=== PATIENT | female | born 1970 | race Caucasian/White ===

== ENCOUNTER 2021-01-15 02:31 | Emergency (ER) | payer OTHER ==
[2021-01-15 03:50] LABS: Basophils % 0.5 % (0-1.3); Hematocrit 36.9 % (36.0-45.0); Lymphocytes % 20.7 % (15.3-44.8); MPV 8.3 fL (7.6-11.3); RBC Red Blood Cell Count 4.06 M/uL (3.86-4.86)
[2021-01-15] MEDS ORDERED: NA CHLORIDE 0.9% 1,000 ML ONE (03:57)
[2021-01-15 04:01] LABS: Bilirubin Direct 0.2 mg/dL (0-0.2); Bilirubin Total 0.8 mg/dL (0.2-1.0); Potassium 3.7 mmol/L (3.5-5.1)
[2021-01-15 04:02] LABS: Albumin 3.5 g/dL (3.4-5.0); Magnesium 2.2 mg/dL (1.8-2.4); Protein, Total 7.6 g/dL (6.4-8.2)
[2021-01-15 04:17] LABS: Protime INR 1.11
[2021-01-15 04:22] LABS: Urine Blood 3+ (Negative); Urine Glucose Negative (Negative); Urine Protein Negative (Negative); Urine Specific Gravity <=1.005 (1.005-1.030); Urine pH 5.5 (5.0-7.0)
[2021-01-15 04:39] LABS: Barbiturates NEGATIVE (NEGATIVE); Benzodiazepines NEGATIVE (NEGATIVE); Cocaine NEGATIVE (NEGATIVE); METHAMPHETAM NEGATIVE (NEGATIVE); Methadone NEGATIVE (NEGATIVE); Opiates NEGATIVE (NEGATIVE); Phencyclidine NEGATIVE (NEGATIVE); THC Cannibis NEGATIVE (NEGATIVE)
--- NOTE | 2021-01-15 04:54 | EDPHYS ---
Physician Documentation [facility] Name: Ronna Goins Age: 50 yrs Sex: Female : 1970 Arrival Date: 01/15/2021 Time: 02:38 Bed 23 Private MD: ED Physician Zac Ramirez HPI: 01/15 02:45 This 50 yrs old Female presents to ER via Ambulatory with complaints of mh7 Fever, ORAL BLEEDING, COUGHING BLOOD. 02:45 The patient reports fever, Chills. mh7 02:45 Onset: The symptoms/episode began/occurred yesterday. mh7 02:45 Modifying factors: Recent medications: amoxicillin. Associated signs and symptoms: mh7 Pertinent positives: chills, cough, Left lower tooth pain for 2 weeks. Pertinent negatives: abdominal pain, altered mental status, arthralgias, backache, chest pain, diarrhea, pulling at ears, earache, headache, myalgias, nausea, night sweats, runny nose, sinus congestion, sinus drainage, skin rash, shortness of breath, sore throat, swelling, vomiting. Severity of symptoms: At their worst the symptoms were mild yesterday, in the emergency department the symptoms are unchanged. Patient states that she started having bleeding in her left lower tooth yesterday and has resolved was coughing up some blood in the sputum after swallowing it. She reports feeling chills over the past day. She denies any fever, headache, chest pain, abdominal pain, shortness of breath, nausea, vomiting, diarrhea, dysuria, dizziness, numbness/tingling, or focal weakness.. 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 - Social history:: Smoking status: Patient denies any tobacco usage or history of. ROS: 02:45 Eyes: Negative for injury, pain, redness, and discharge, Neck: Negative for injury, mh7 pain, and swelling, Cardiovascular: Negative for chest pain, palpitations, and edema, Abdomen/GI: Negative for abdominal pain, nausea, vomiting, diarrhea, and constipation, Back: Negative for injury and pain, : Negative for injury, bleeding, discharge, and swelling, MS/Extremity: Negative for injury and deformity, Skin: Negative for injury, rash, and discoloration, Neuro: Negative for headache, weakness, numbness, tingling, and seizure, Psych: Negative for depression, anxiety, suicide ideation, homicidal ideation, and hallucinations, Allergy/Immunology: Negative for hives, rash, and allergies, Endocrine: Negative for neck swelling, polydipsia, polyuria, polyphagia, and marked weight changes, Hematologic/Lymphatic: Negative for swollen nodes, abnormal bleeding, and unusual bruising. Exam: 02:45 Constitutional: This is a well developed, well nourished patient who is awake, alert, mh7 and in no acute distress. Head/Face: Normocephalic, atraumatic. Eyes: Pupils equal round and reactive to light, extra-ocular motions intact. Lids and lashes normal. Conjunctiva and sclera are non-icteric and not injected. Cornea within normal limits. Periorbital areas with no swelling, redness, or edema. 02:45 Neck: Trachea midline, no thyromegaly or masses palpated, and no cervical lymphadenopathy. Supple, full range of motion without nuchal rigidity, or vertebral point tenderness. No Meningismus. Chest/axilla: Normal chest wall appearance and motion. Nontender with no deformity. No lesions are appreciated. Cardiovascular: Regular rate and rhythm with a normal S1 and S2. No gallops, murmurs, or rubs. Normal PMI, no JVD. No pulse deficits. Respiratory: Lungs have equal breath sounds bilaterally, clear to auscultation and percussion. No rales, rhonchi or wheezes noted. No increased work of breathing, no retractions or nasal flaring. Abdomen/GI: Soft, non-tender, with normal bowel sounds. No distension or tympany. No guarding or rebound. No evidence of tenderness throughout. Back: No spinal tenderness. No costovertebral tenderness. Full range of motion. Skin: Warm, dry with normal turgor. Normal color with no rashes, no lesions, and no evidence of cellulitis. MS/ Extremity: Pulses equal, no cyanosis. Neurovascular intact. Full, normal range of motion. Neuro: Awake and alert, GCS 15, oriented to person, place, time, and situation. Cranial nerves II-XII grossly intact. Motor strength 5/5 in all extremities. Sensory grossly intact. Cerebellar exam normal. Normal gait. Psych: Awake, alert, with orientation to person, place and time. Behavior, mood, and affect are within normal limits. 02:45 ENT: Nose: is normal, Mouth: is normal, Posterior pharynx: is normal, Dental exam: abscess, is not appreciated, cellulitis, is not appreciated, dental caries, that is mild, specifically in the lower left second molar (#18), fractured teeth are noted, not appreciated, gum swelling, not appreciated, malocclusion, is not appreciated, missing teeth, not appreciated, pain, that is mild, specifically in the lower left second molar (#18), Voice: is normal. Vital Signs: 02:51 BP 145 / 85; Pulse 65; Resp 18; Temp 97.4(TE); Pulse Ox 98% on R/A; Weight 59.87 kg lp1 (R); Height 5 ft. 0 in. (152.40 cm); Pain 0/10; 04:22 BP 137 / 84; Pulse 62; Resp 14; Temp 97.9(O); Pulse Ox 99% on R/A; bc5 05:12 BP 129 / 75; Pulse 68; Resp 15; Temp 98.3(O); Pulse Ox 99% on R/A; Pain 0/10; bc5 02:51 Body Mass Index 25.78 (59.87 kg, 152.40 cm) lp1 MDM: 04:49 Differential diagnosis: viral Infection, bacterial infection, URI, bronchitis, mh7 pneumonia UTI, Dental pain, dental caries, gingivitis. Data reviewed: vital signs, nurses notes, lab test result(s), CBC, electrolytes, Flu: negative urinalysis, urine drug screen, Covid negative. Data interpreted: Pulse oximetry: on room air is 99 %. Interpretation: normal. Counseling: I had a detailed discussion with the patient and/or guardian regarding: the historical points, exam findings, and any diagnostic results supporting the discharge/admit diagnosis, the presence of at least one elevated blood pressure reading (>120/80) during this emergency department visit, lab results, radiology results, the need for outpatient follow up, a dentist, to return to the emergency department if symptoms worsen or persist or if there are any questions or concerns that arise at home. Response to treatment: the patient's symptoms have resolved after treatment, the patient's blood pressure is in an acceptable range, mental status has returned to baseline, the patient no longer shows bradycardia, the patient is not short of breath, the patient is not tachycardic, the patient's pain is gone, the patient's temperature has normalized. 04:53 Patient medically screened. [facility] 01/15 03:01 Order name: CBC with Diff; Complete Time: 04:20 [facility] 01/15 03:01 Order name: Basic Metabolic Panel; Complete Time: 04:20 [facility] 01/15 03:01 Order name: LFT's; Complete Time: 04:20 [facility] 01/15 03:01 Order name: Protime (+inr); Complete Time: 04:23 [facility] 01/15 03:01 Order name: Ptt, Activated; Complete Time: 04:23 [facility] 01/15 03:01 Order name: UDS; Complete Time: 04:44 7 01/15 03:08 Order name: Magnesium [facility] 01/15 03:46 Order name: Magnesium; Complete Time: 04:20 EDMS 01/15 04:21 Order name: Urine Dipstick-Ancillary; Complete Time: 04:23 EDMS 01/15 04:28 Order name: Urine --Ancillary (enter results) tt3 01/15 04:38 Order name: SARS-COV-2 RT PCR; Complete Time: 04:44 EDMS 01/15 03:01 Order name: Urine Dipstick-Ancillary (obtain specimen); Complete Time: 04:22 7 01/15 03:01 Order name: Urine Test (obtain specimen); Complete Time: 04:22 7 01/15 03:01 Order name: Chest Single View XRAY [facility] 01/15 03:01 Order name: Saline Lock; Complete Time: 03:33 mh7 Administered Medications: 03:33 Drug: NS 0.9% 1000 ml Route: IV; Rate: 1000 ml; Site: right antecubital; bc5 05:11 Follow up: IV Status: Completed infusion; IV Intake: 1000ml bc5 Disposition Summary: 01/15/21 04:53 Discharge Ordered Location: Home [facility] Problem: an ongoing problem [facility] Symptoms: have improved [facility] Condition: Stable [facility] Diagnosis - Dental caries, unspecified [facility] - Gingivitis [facility] Followup: [facility] - With: Private Physician - When: 1 - 2 days - Reason: Worsening of condition, Recheck today's complaints, Continuance of care, Re-evaluation by your physician Followup: [facility] - With: Hernán Avery DDS - When: 1 - 2 days - Reason: Worsening of condition, Recheck today's complaints Discharge Instructions: - Discharge Summary Sheet [facility] - Dental Caries, Adult [facility] - Dental Pain, Vetr-is-Oebt [facility] - Gingivitis, Cxfk-fv-Jrui [facility] Forms: - Medication Reconciliation Form [facility] - Thank You Letter [facility] - Antibiotic Education [facility] - Prescription Opioid Use [facility] - Work release form bc5 Prescriptions: - chlorhexidine gluconate 0.12 % Mucous Membrane mouthwash - place 15 milliliter by MUCOUS MEMBRANE route 2 times per day after brushing [facility] teeth, swish in mouth for 30 seconds then spit out; 150 milliliter; Refills: 0, Product Selection Permitted Signatures: Dispatcher [employer] EDMS Samia Barnes, RN RN lp1 Gabriele Castillo, VISCOSITY TESTER-C VISCOSITY TESTER-Cla1 Zac Ramirez MD MD 7 Camille Milligan, RN RN bc5 Corrections: (The following items were deleted from the chart) 03:37 03:02 CORONAVIRUS+MR.LAB.BRZ ordered. EDMS EDMS 03:45 03:09 Magnesium ordered. EDMS EDMS
--- NOTE | 2021-01-15 04:54 | ER ---
Nurse's Notes [facility] Name: Ronna Goins Age: 50 yrs Sex: Female : 1970 Arrival Date: 01/15/2021 Time: 02:38 Bed 23 Private MD: Diagnosis: Dental caries, unspecified;Gingivitis Presentation: 01/15 02:51 Chief complaint: Patient states: Reports tasting blood in mouth this morning, has been lp1 dealing with a tooth abscess x 2 weeks; states feeling cold, chills. Coronavirus screen: At this time, the client does not indicate any symptoms associated with coronavirus-19. Ebola Screen: No symptoms or risks identified at this time. Initial Sepsis Screen: Does the patient meet any 2 criteria? No. Patient's initial sepsis screen is negative. Does the patient have a suspected source of infection? No. Patient's initial sepsis screen is negative. Risk Assessment: Do you want to hurt yourself or someone else? Patient reports no desire to harm self or others. Onset of symptoms was January 15, 2021. 02:51 Method Of Arrival: Ambulatory lp1 02:51 Acuity: CECILIO 4 lp1 Triage Assessment: 03:34 General: Appears in no apparent distress. distressed, comfortable, Behavior is calm, bc5 cooperative, appropriate for age. Pain:. 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 - Social history:: Smoking status: Patient denies any tobacco usage or history of. Screenin:54 Abuse screen: Denies threats or abuse. Denies injuries from another. Nutritional lp1 screening: No deficits noted. Tuberculosis screening: No symptoms or risk factors identified. Fall Risk None identified. Assessment: 03:34 Reassessment: Pt c/o left tooth pain d/t "abcess" pt reports first noticing approx 3 bc5 weeks ago, states this weekend felt "chills and look up sepsis and got scared" A\\T\\O x 3, RR is even and unlabored, speaking in clear and complete sentences at this time. Vital Signs: 02:51 BP 145 / 85; Pulse 65; Resp 18; Temp 97.4(TE); Pulse Ox 98% on R/A; Weight 59.87 kg lp1 (R); Height 5 ft. 0 in. (152.40 cm); Pain 0/10; 04:22 BP 137 / 84; Pulse 62; Resp 14; Temp 97.9(O); Pulse Ox 99% on R/A; bc5 05:12 BP 129 / 75; Pulse 68; Resp 15; Temp 98.3(O); Pulse Ox 99% on R/A; Pain 0/10; bc5 02:51 Body Mass Index 25.78 (59.87 kg, 152.40 cm) lp1 ED Course: 02:38 Patient arrived in ED. ja2 02:43 Zac Ramirez MD is Attending Physician. 7 02:45 Camille Milligan, STARR is Primary Nurse. bc5 02:53 Triage completed. lp1 02:53 Arm band placed on. lp1 03:13 Chest Single View XRAY In Process Unspecified. EDMS 03:34 Patient has correct armband on for positive identification. Bed in low position. Call bc5 light in reach. Side rails up X 1. 03:34 No provider procedures requiring assistance completed. Inserted saline lock: 20 gauge bc5 in right antecubital area, using aseptic technique. 04:51 Hernán Avery DDS is Referral Physician. 7 05:12 IV discontinued, intact, bleeding controlled, No redness/swelling at site. Pressure bc5 dressing applied. Administered Medications: 03:33 Drug: NS 0.9% 1000 ml Route: IV; Rate: 1000 ml; Site: right antecubital; bc5 05:11 Follow up: IV Status: Completed infusion; IV Intake: 1000ml bc5 Intake: 05:11 IV: 1000ml; Total: 1000ml. bc5 Outcome: 04:53 Discharge ordered by . 7 05:12 Condition: stable bc5 05:24 Patient left the ED. bc5 05:24 Discharged to home ambulatory. bc5 05:24 Discharge instructions given to patient, Instructed on discharge instructions, follow up and referral plans. medication usage, Prescriptions given X 1. Signatures: Dispatcher [employer] Samia Michelle, RN RN lp1 Zac Ramirez MD MD mh7 Evie Hernandez Bella, RN RN bc5
[2021-01-15 05:29] LABS: Urine Specific Gravity/Preg <1.005 (1.005-1.030)
[2021-01-15 05:35] VITALS: O2SAT 99
[2021-01-15 05:36] VITALS: BP 129/75; TEMP 98.3
--- NOTE | 2021-01-15 07:39 | RAD REPORT ---
EXAM DESCRIPTION: Juan Luis Single View01/15/2021 3:13 am CLINICAL HISTORY: Cough COMPARISON: 2017 FINDINGS: The lungs appear clear of acute infiltrate. The heart is normal size IMPRESSION: No acute abnormalities displayed
== END 2021-01-15 05:24 | disposition home or self-care (01) ==
LOC: ER 02:31
DX: K05.10 Chronic gingivitis, plaque induced (principal); E03.9 Hypothyroidism, unspecified; Z20.822 Contact with and (suspected) exposure to COVID-19
CPT/HCPCS: 96361; 85025; 80048; 36415; 83735; 81025; 85610; 80076; 85730; 81003; 80307; 71045; 96360; 99284; U0003; J7030

== ENCOUNTER 2021-03-05 07:33 | Day surgery (SDC) | payer OTHER ==
[2021-03-05 08:18] LABS: Absolute Lymphocytes (CBC) 1.3 K/uL (0.7-4.9); Basophils % 0.6 % (0-1.3); Hematocrit 39.8 % (36.0-45.0); Lymphocytes % 31.1 % (15.3-44.8); MPV 7.9 fL (7.6-11.3)
[2021-03-05 08:37] LABS: Albumin 3.5 g/dL (3.4-5.0); Bilirubin Direct 0.2 mg/dL (0-0.2); Bilirubin Total 0.7 mg/dL (0.2-1.0); Potassium 4.1 mmol/L (3.5-5.1); Protein, Total 7.8 g/dL (6.4-8.2)
[2021-03-05] MEDS ORDERED: Ringers Lactate 1,000 ML IV ONE (08:44)
[2021-03-05] MEDS ORDERED: CEFOXITIN/NS 1gm 1 GM/50 ML BAG IV ONE (09:00)
[2021-03-05 09:09] VITALS: O2SAT 100
[2021-03-05] MEDS ORDERED: CELECOXIB 100 MG CAPSULE ONE (10:12)
[2021-03-05] MEDS ORDERED: ACETAMINOPHEN 500 MG TAB ONE (10:13)
[2021-03-05] MEDS ORDERED: MIDAZOLAM HCL 2 MG/2 ML INJ ONE (10:19)
[2021-03-05] MEDS ORDERED: LIDOCAINE 2% MPF 5 ML VIAL ONE (10:19)
[2021-03-05] MEDS ORDERED: GLYCOPYRROLATE 0.2 MG/ML SYR ONE (10:19)
[2021-03-05] MEDS ORDERED: FENTANYL CITR 100 MCG/2 ML ONE ×2 (10:20→11:44)
[2021-03-05] MEDS ORDERED: ROCURONIUM 50 MG/5 ML VIAL IV ONE (10:20)
[2021-03-05] MEDS ORDERED: propofoL 200 MG/20 ML VIAL IV ONE (10:20)
[2021-03-05] MEDS ORDERED: BUPIVACAINE 0.5% Inj,MDV 50 mL VIAL ONE (10:23)
--- NOTE | 2021-03-05 11:08 | P.BOP ---
Preoperative diagnosis: acute cholecystitis, symptomatic cholelithiasis Postoperative diagnosis: same Primary procedure: Laparoscopic cholecystectomy Steam Hoist Operator: Susan Urbina (Gabriela) Estimated blood loss: <10cc Specimen: gb Findings: as above Anesthesia: General Complications: None Transferred to: Recovery Room Condition: Good
[2021-03-05] MEDS ORDERED: ONDANSETRON 4 MG/2 ML VIAL ONE ×2 (11:43→13:46)
[2021-03-05] MEDS ORDERED: TRAMADOL 37.5mg/APAP 325mg PER TAB ONE (12:39)
--- NOTE | 2021-03-05 13:12 | OP ---
Date of Procedure: 03/05/2021 Surgeon: Jose Juan Mak MD Supervisor Finishing Room: DAVID Bryson. Preoperative Diagnoses: Acute cholecystitis, symptomatic cholelithiasis. Postoperative Diagnoses: Acute cholecystitis, symptomatic cholelithiasis. Procedure: Laparoscopic cholecystectomy. Estimated Blood Loss: Less than 10 cc. Specimen: Gallbladder. Anesthesia: General plus local. Indication: This is the case of a 50-year-old patient, who comes to us with above diagnosis. Fully explained the benefits, alternatives, and risks of laparoscopic possible open cholecystectomy, which include, but not limited to infection, bleeding, damage to adjacent structures, anesthesia complicati on, choledocholithiasis, bile leak, pancreatitis, WI, and even . She also understands this may not relieve any symptoms. She might need more than one surgical intervention. She understood, viraj d a consent. Procedure In Detail: The patient was brought to the operating room, placed in supine position. Anes thesia was done without complication. Abdominal area was prepped and draped in usual sterile fashion . Marcaine 0.5% was injected for local anesthetic followed by sharp incision of the skin in the infr aumbilical region. Incision was carried down to fascia, which was opened under direct vision. Perit oneum was encountered, opened under direct vision. Vicryl #1 placed inside the fascia. Abilio troca r was carefully introduced. Pneumoperitoneum was obtained. I placed 3 more trocars, 5 mm each one o f them in the epigastric and right upper quadrant under direct visualization. This allowed me to put a grasper in the fundus of the gallbladder, another grasper in the infundibulum retracting the gallb ladder in the inferolateral fashion, exposing the triangle of Calot and obtaining critical view. Cys tic duct and cystic artery were clearly isolated, free circumferentially and a connection between tho se and the gallbladder were clearly identified. I proceeded to ligate those by using at least 3 clip s proximal, 1 clip distal, ligation in middle. Same was done with the cystic artery. No bile leak. No bleeding. The gallbladder was removed from liver using Bovie cauterizer and removed from abdomin al cavity using EndoCatch through the umbilical incision. The area was inspected once again. No michael e leak. No bleeding. Clips were intact. At that moment, I proceeded to remove the trocars under di rect vision. Deflated pneumoperitoneum. Closed the fascia with #1 Vicryl. Irrigated subcutaneous t issue, closed that with 3-0 chromic and skin in a subcuticular fashion with 3-0 chromic, and Steri-St rips on top. Sponge count and instrument counts correct. The patient tolerated the procedure well. The patient was on the way to recovery in stable condition. ALICIA/CHEMO Voice ID: [id number] Report ID: [id number]
--- NOTE | 2021-03-05 13:15 | DS ---
Diagnoses: Acute cholecystitis, symptomatic cholelithiasis. Procedure: Laparoscopic cholecystectomy. Disposition: Home. Activity: As tolerated. No heavy lifting. Plan: Follow up in my office in 1 week. Call for appointment at [phone]. Keep area dry for [address] rs, then may shower. Keep Steri-Strip intact. Medications: Include Ultracet q.4 hours p.r.n. pain and Augmentin 875 p.o. q.12. ALICIA/CHEMO Voice ID: [id number] Report ID: [id number]
[2021-03-05 14:03] VITALS: BP 115/63; TEMP 97.3
--- NOTE | 2021-03-07 08:09 | EKG ---
Test Date: 2021-03-05 Test Time: 07:58:53 Fios Line Installer: SRINIVAS MEASUREMENT RESULTS: Intervals: Rate: 58 [place]: 152 QRSD: 72 QT: 396 QTc: 388 [place]: P: 74 [place]: 152 QRS: 66 T: 49 INTERPRETIVE STATEMENTS: Sinus bradycardia Otherwise normal ECG Compared to ECG 11/18/2017 15:14:36 No significant changes Electronically Signed On 03-07-21 08:03:56 DENTAL TECHNOLOGIST by Juancho Telles
== END 2021-03-05 14:45 | disposition home or self-care (01) ==
LOC: OR 07:33
PROVIDERS: ATTEND Surgery
PROC: 0FT44ZZ Resection of Gallbladder, Percutaneous Endoscopic Approach (ICD-10-PCS; principal; 2021-03-05 10:30)
DX: K80.10 Calculus of gallbladder with chronic cholecystitis without obstruction (principal)
CPT/HCPCS: 93005; 85025; 80048; 36415; 82150; 84703; 80076; 88304; 83690; 47562; U0003; J2704; J2250; J3010; J7120; J0694; J2405 ×2

== ENCOUNTER 2021-03-18 18:15 | Emergency (ER) | payer OTHER ==
--- OUTSIDE RECORDS SUMMARY | 2021-03-18 18:18 | XMS REPORT | Continuity of Care Document ---
:1970 Author Organization [facility] t Address 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 1-07 [place] PMS PMS Disease Active Univers (premenstr (premenstr 1-07 it y of ual ual 00:00: [place] syndrome) syndrome) 00 [place] anthony Branch Congenital Congenital Disease Active U nivers sensorineu sensorineu 6-19 it y of ral ral 00:00: [place] hearing hearing 00 Medical loss loss Branch Family Family Disease Active Univers history of history of 5-30 it y of breast breast 00:00: [place] cancer cancer 00 Medical Branch Weight Weight Disease Active Univers gain gain 5-30 ity of 00:00: [place] 00 Medical Branch Diverticul Diverticul Disease Active U nivers osis of osis of 4-21 [place] of intestine intestine 00:00[place] without without 00 Medical bleeding, bleeding, Bran ch unspecifie unspecifie d d intestinal intestinal tract tract location location History of History of Disease Active U nivers hematuria hematuria 4-21 ity of 00:00: [place] [facility] Pain Pain Disease Active Univers pelvic pelvic 4-21 ity of 00:00: [place] [facility] Unusually Unusually Disease Active Uni vers frequent frequent 4-21 ity of menses menses 00:00: [place] [facility] Menorrhagi Menorrhagi Disease Active U nivers a with a with 4-21 ity of regular regular 00:00: [place] cycle cycle 00 Medical Branch Family Family Disease Active Univers history of history of 4-21 it y of breast breast 00:00: [place] cancer in cancer in 00 [facility] first first Branch degree degree relative relative Vitamin D Vitamin D Disease Active Uni vers deficiency deficiency 6-10 it y of 00:00: [place] [facility] Papillary Papillary Disease Active Uni vers thyroid thyroid 3-10 it[place] of carcinoma carcinoma 00:[place] Hypothyroi Hypothyroi Disease Active U nivers dism, dism, 3-10 ity of postsurgic postsurgic 00:[place] Numbness Numbness Disease Active Unive rs and and 3-10 ity of tingling tingling 00:00: [place] in hands in hands 00 Medica l Branch S/P S/P Disease Active Univers thyroidect thyroidect 2-17 it y of eduardo eduardo 00:00: [place] [facility] Right Right Disease Active Univers thyroid thyroid 9-09 ity of nodule nodule 00:00: [place] [facility] Goiter Goiter Disease Active Univers 8-26 ity of 00:00: [place] 00 Medical Branch Genital Genital Disease Active Univers herpes herpes ity of [place] [facility] Branch Allergies, Adverse Reactions, Alerts Allergy Allergy Status Severity Reaction(s) Onset Inactive Treating Comm ents Source Name Type Date Date Clinician Nitrofur Propensi Active Swelling Face felt U nivers antoin ty to 4-30 very hot, ity of Monohyd/ adverse 00:00[place] M-Cryst reaction 00 and red. Medic al s Branch NITROFUR DRUG Active Rash Univers ANTOIN 4-30 ity of MONOHYD/ 00:00: [place] M-CRYST 00 Medical Branch AMOXICIL DRUG Active Med Diarrhea Univer s ISMAEL INGREDI 2-17 ity of 00:00: [place] 00 Medical Branch Amoxicil Propensi Active Diarrhea Univ ers ismael ty to 2-17 ity of adverse 00:00: [place] reaction 00 Medical s Branch Hydrocod Propensi Active Unknown - Paranoid U nivers one-Acet ty to See comments 8-15 it y of aminophe adverse 00:00: [place] n reaction 00 Medical s Branch Sertrali Propensi Active Rash Univer s ne Hcl ty to 8-15 ity of adverse 00:00: [place] reaction 00 Medical s Branch AMITRIPT DRUG Active Unknown-Cmnt Un quinn YLINE INGREDI 8-15 ity of 00:00: [place] 00 Medical Branch BUSPIRON DRUG Active Unknown-Cmnt Un quinn E HCL INGREDI 8-15 ity of 00:00: [place] 00 Medical Branch HYDROCOD DRUG Active Unknown-Cmnt Un quinn ONE-ACET 8-15 ity of AMINOPHE 00:00: [place] N 00 Medical Branch SERTRALI DRUG Active Rash Univers NE HCL INGREDI 8-15 ity of 00:00: [place] 00 Medical Branch Amitript Propensi Active Unknown - Off Uni vers yline ty to See comments 8-15 balance ity of adverse 00:00: [place] reaction 00 Medical s Branch Buspiron Propensi Active Unknown - " Hearing Univers e Hcl ty to See comments 8-15 Noises" ity of adverse 00:00: [place] reaction 00 Medical s Branch amitript Adverse Active dizziness [facility] Zoloft Adverse Active rash [facility] BuSpar Adverse Active paranoia [facility] Amoxicil Adverse Active Info Not [facility] Vicodin Adverse Active paranoia [facility] Reaction [facility] Social History Social Habit Start Date Stop Date Quantity Comments Source History of Cigarette Smoker Universi ty of tobacco use [facility] Exposure to Not sure University of SARS-CoV-2 [place] [facility] (event) [place] Alcohol intake 2021-02-09 2021-02-09 0 /d University 00:00:00 00:00:00 [facility] Sex [birth year] At [birth year] Universit y of 00:00:00 00:00:00 [facility] Smoking Status Start Date Stop Date Source Former smoker 2020-12-12 00:00:00 2020-12-12 00:00:00 Universi of [facility] Medications Ordered Filled Start Stop Current Ordering Indication Dosage Frequency Signature Comments Components Source Medication Medication Date Date Medication? Clinician (SIG) Name Name levothyroxi 2020-04 Yes [id number] TAKE 1 Univers ne 75 mcg 2-03 TABLET BY ity o f tablet 00:00: MOUTH [place] EVERY Medical MORNING Branch levothyroxi 2020-04- No [id number] TAKE 1 Univers ne 75 mcg 1 12-03 TABLET BY ity of tablet 00:00: 00:00 MOUTH [place] 00 : EVERY Medical MORNING Branch cholecalcif 2020-04 Yes Take by Un quinn jerrica, 0-29 mouth. ity of vitamin D3, 10:01: [place] (VITAMIN Medical D3) 4,000 Branch unit Cap cholecalcif 2020-04 Yes Take by Un quinn jerrica, 0-29 mouth. ity of vitamin D3, 10:01: [place] (VITAMIN 00 Medical D3) 4,000 Branch unit Cap cholecalcif 2020-04 Yes Take by Un quinn jerrica, 0-29 mouth. ity of vitamin D3, 10:01: [place] (VITAMIN 00 Medical D3) 4,000 Branch unit Cap LORazepam Yes Univers 0.5 mg 7-09 ity of tablet 00:00: Medical [place] LORazepam Yes Univers 0.5 mg 7-09 ity of tablet 00:00: [facility] LORazepam Yes Univers 0.5 mg 7-09 ity of tablet 00:00: [facility] esomeprazol Yes [id number] 40mg Take 1 Univers e (NEXIUM) 7-06 capsule by ity of 40 mg 00:00: mouth [place] capsule 00 daily with Medica l breakfast. Branch esomeprazol Yes [id number] 40mg Take 1 Univers e (NEXIUM) 7-06 capsule by ity of 40 mg 00:00: mouth [place] capsule 00 daily with Medica l breakfast. Branch esomeprazol Yes [id number] 40mg Take 1 Univers e (NEXIUM) 7-06 capsule by ity of 40 mg 00:00: mouth [place] capsule 00 daily with Medica l breakfast. Branch sucralfate Yes TAKE 1 Unive rs 1 gram 7-01 TABLET BY ity of tablet 00:00: MOUTH [place] 00 EVERY 6 Medical HOURS Branch NEEDED FOR INDIGESTIO N, UPSET STOMACH OR HEARTBURN sucralfate Yes TAKE 1 Unive rs 1 gram 7-01 TABLET BY ity of tablet 00:00: MOUTH [place] 00 EVERY 6 Medical HOURS Branch NEEDED FOR INDIGESTIO N, UPSET STOMACH OR HEARTBURN sucralfate Yes TAKE 1 Unive rs 1 gram 7-01 TABLET BY ity of tablet 00:00: MOUTH [place] 00 EVERY 6 Medical HOURS Branch NEEDED FOR INDIGESTIO N, UPSET STOMACH OR HEARTBURN levothyroxi 2020- No [id number] TAKE 1 Univers ne 75 mcg 6-03 -06 TABLET BY ity of tablet 00:00: 00:00 MOUTH [place] 00 :00 EVERY Medical MORNING Branch levothyroxi 2020- No [id number] TAKE 1 Univers ne 75 mcg 6-03 11-06 TABLET BY ity of tablet 00:00: 00:00 MOUTH [place] 00 :00 EVERY Medical MORNING Branch Ciprofloxac Ciprofloxac 2020- No Nori [address] [facility] in HCl in HCl 12-14 [facility] valACYclovi Yes [id number] 1g Take 1 Univers r (VALTREX) 7-16 tablet by ity of 1 gram 00:00: mouth [place] tablet 00 daily. Medical Branch valACYclovi Yes [id number] 1g Take 1 Univers r (VALTREX) 7-16 tablet by ity of 1 gram 00:00: mouth [place] tablet 00 daily. [facility] Branch valACYclovi Yes [id number] 1g Take 1 Univers r (VALTREX) 7-16 tablet by ity of 1 gram 00:00: mouth [place] tablet 00 daily. Medical Branch Omeprazole Omeprazole Yes Nori [address] [facility] 8-07 [facility] Mobic Mobic Yes Nori [address] [facility] Emverm Emverm Yes Nori [address] [facility] one time [facility] Azithromyci Azithromyci Yes Nori [address] [facility] n n [facility] on the [facility] first day, [facility] then 1 l tablet Outpati daily for ent 4 days Clinics Levothyroxi Levothyroxi Yes Nori not [facility] ne Sodium ne Sodium [facility] defined [facility] Vital Signs Vital Name Observation Time Observation Value Comments Source Systolic blood 2021-02-09 14:41:00 127 mm[Hg] [facility] Diastolic blood 2021-02-09 14:41:00 71 mm[Hg] [facility] Body height 2021-02-09 14:41:00 154.9 cm [facility] Body weight 2021-02-09 14:41:00 54.885 kg [facility] BMI 2021-02-09 14:41:00 22.86 kg/m2 [facility] Oxygen saturation 2021-02-09 14:41:00 96 /min [facility] in Arterial blood [facility] Br anch by Pulse oximetry Procedures This patient has no known procedures. Encounters Start End Encounter Admission Attending Care Care Encounter Source Date/Time Date/Time Type Type Clinicians Facility Department ID 2021-03-16 2021-03-16 SARA Eckert [id number] Univers 00:00:00 00:00:00 Sarah LOCKHART [id number] jarrod Dash [id number] [place] PROF[place] [id number] Ia dical NAL 220 Branch BUILDING 2021-02-09 2021-02-09 Office [facility] [id number] Univers 09:32:33 10:22:21 Visit [facility] [id number] it y of [place] [id number] Jacques as DOMINGO?BLEA [id number] Ia dical [address] MEDICAL OFFICE BUILDING 2021-02-09 2021-02-09 Outpatient [facility] [id number] Univers 09:30:00 10:22:21 [facility] 2020-09-18 2020-09-18 Outpatient Koudela_A [facility] MMG [id number] [place] 11:16:00 11:16:00 [facility] 2019-12-27 2019-12-27 Outpatient [facility] [id number] [facility]00 [facility] 2019-12-15 2019-12-15 [facility] [id number] [facility] 15:20:00 15:20:00 [facility] Medicine Medicine Outpati ent Clinics 2019-02-18 2019-02-18 [facility] [id number] [facility] 16:00:00 16:00:00 [facility] Medicine l Medicine Outpati ent Clinics 2018-08-13 2018-08-13 [facility] [id number] [facility] 08:45:00 08:45:00 [facility] Medicine l Medicine Outpati ent Clinics 2017-12-08 2017-12-08 [facility] [id number] [facility] 16:21:00 16:21:00 [facility] Medicine l Medicine Outpati ent Clinics 2017-12-05 2017-12-05 [facility] [id number] [facility] [address] 09:00:00 09:00:00 [facility] Medicine Medicine Outpati ent Clinics 2017-11-21 2017-11-21 [facility] [id number] [address] 08:28:00 08:28:00 t [facility] Medicine Outpati ent Clinics 2017-11-18 2017-11-18 [facility] [id number] [facility] [address] 22:37:00 22:37:00 t [facility] Medicine Outpati ent Clinics 2017-11-18 2017-11-18 [facility] [id number] [facility] 13:00:00 13:00:00 t [facility] Medicine Outpati ent Clinics 2017-09-09 2017-09-09 [facility] [id number] 13:15:00 13:15:00 t [facility] Medicine Outpati ent Clinics 2017-09-04 2017-09-04 [facility] [id number] 09:30:00 09:30:00 [facility] Medicine Outpati ent Clinics Results This patient has no known results.
[2021-03-18 19:14] LABS: Absolute Lymphocytes (CBC) 0.9 K/uL (0.7-4.9); Basophils % 0.9 % (0-1.3); Hematocrit 39.7 % (36.0-45.0); Lymphocytes % 8.7 % (15.3-44.8); MPV 7.9 fL (7.6-11.3); RBC Red Blood Cell Count 4.32 M/uL (3.86-4.86)
[2021-03-18 19:19] LABS: Protime INR 1.08
[2021-03-18 19:41] LABS: ALT/SGPT 123 U/L (12-78); AST/SGOT 174 U/L (15-37); Albumin 3.3 g/dL (3.4-5.0); Alkaline Phosphatase 98 U/L (45-117); BUN Blood Urea Nitrogen 18 mg/dL (7-18); Bicarbonate 30 mmol/L (21-32); Bilirubin Direct 0.3 mg/dL (0-0.2); Bilirubin Total 0.6 mg/dL (0.2-1.0); Glucose Level 118 mg/dL (74-106); Lipase 143 U/L (73-393); Magnesium 2.2 mg/dL (1.8-2.4); NT PRO-BNP 125 pg/mL (<125); Potassium 3.9 mmol/L (3.5-5.1); Protein, Total 7.5 g/dL (6.4-8.2); Sodium Level 142 mmol/L (136-145); Troponin (Emerg Dept Use Only) < 0.02 ng/mL (0.0-0.045)
--- NOTE | 2021-03-18 20:38 | RAD REPORT ---
EXAM DESCRIPTION: RAD - Chest Single View - 03/18/2021 7:46 pm CLINICAL HISTORY: PAIN COMPARISON: January 15 TECHNIQUE: AP portable chest image was obtained 03/18/2021 7:46 pm . FINDINGS: Lungs are clear. Heart and vasculature are normal. No measurable pleural effusion and no p neumothorax. No acute bony abnormality seen. No acute aortic findings suspected. IMPRESSION: No acute cardiopulmonary process. No significant change from comparison study.
[2021-03-18] MEDS ORDERED: FAMOTIDINE 20 MG/2 ML VIAL IV ONE (20:57)
[2021-03-18] MEDS ORDERED: ONDANSETRON 4 MG/2 ML VIAL ONE (20:57)
[2021-03-18] MEDS ORDERED: NA CHLORIDE 0.9% 1,000 ML ONE (20:57)
--- NOTE | 2021-03-18 21:20 | RAD REPORT ---
EXAM DESCRIPTION: CT - Abdomen Pelvis W Contrast - 03/18/2021 9:06 pm CLINICAL HISTORY: s/p cholecystectomy;Abd pain COMPARISON: Abdomen Pelvis W Contrast dated 10/24/2020; Chest For Pe Angio dated 03/18/2021 TECHNIQUE: Biphasic, helical CT imaging of the abdomen and pelvis was performed following 100 ml non -ionic IV contrast. No oral contrast administered. All CT scans are performed using dose optimization technique as appropriate and may include automated exposure control or mA/KV adjustment according to patient size. FINDINGS: No suspicious findings in the lung bases. The liver, spleen, and pancreas show no suspicious findings. Cholecystectomy clips are present no michael iary tree dilatation. No abscess, hemorrhage or other abnormality in or around the gallbladder fossa. Symmetric renal function is seen with no hydronephrosis or suspicious renal mass. Nonobstructing righ t renal calculi again noted. No pyelonephritis or acute parenchymal process. No bladder abnormalities . No adrenal abnormalities. Uterus and ovaries show no suspicious findings. No dilated bowel loops or bowel wall thickening. Appendix is normal. No free air, free fluid or infla mmatory stranding. No hernia, mass or bulky lymphadenopathy. No suspicious bony findings. IMPRESSION: Contrast enhanced CT abdomen and pelvis showing no acute or emergent finding.
--- NOTE | 2021-03-18 21:27 | RAD REPORT ---
EXAM DESCRIPTION: CT - Chest For Pe Angio - 03/18/2021 9:02 pm CLINICAL HISTORY: CHEST PAIN COMPARISON: Chest Single View dated 03/18/2021 TECHNIQUE: Dynamically enhanced 3 mm thick images of the chest were obtained during administration o f approximately 150mL Isovue 370 IV contrast. Coronal and oblique MIP reconstruction images were gene rated and reviewed. Exam utilizes a protocol to evaluate the pulmonary arterial tree. All CT scans are performed using dose optimization technique as appropriate and may include automated exposure control or mA/KV adjustment according to patient size. FINDINGS: No pulmonary emboli are identified. The aorta as imaged shows no acute or suspicious finding. No pericardial thickening or effusion. No infiltrate or mass in the lung parenchyma. No pleural effusion or pleural thickening. No mediastinal or hilar suspicious masses. No chest wall masses or abnormal axillary lymphadenopathy. IMPRESSION: No pulmonary emboli identified. No other significant or suspicious findings.
[2021-03-18 21:33] LABS: Urine Blood Negative (Negative); Urine Glucose Negative (Negative); Urine Protein Negative (Negative)
--- NOTE | 2021-03-18 22:42 | EDPHYS ---
Physician Documentation [facility] Name: Ronna Goins Age: 50 yrs Sex: Female : 1970 Arrival Date: 03/18/2021 Time: 18:17 Bed 6 Private MD: TOSIN Physician Zac Ramirez HPI: 03/18 20:56 This 50 yrs old Unknown Female presents to ER via EMS with complaints of Abdominal Pain.mh7 20:56 The patient presents with abdominal pain in the upper abdomen. Onset: The mh7 symptoms/episode began/occurred today. The symptoms radiate to back. Associated signs and symptoms: Pertinent positives: nausea and vomiting, chest pain, X2, Pertinent negatives: anorexia, blood in stools, constipation, diarrhea, dysuria, fever, headache, hematuria, palpitations, shortness of breath, vaginal discharge, vomiting blood. The symptoms are described as intermittent, vague, waxing/waning. Modifying factors: The symptoms are alleviated by nothing, the symptoms are aggravated by nothing. Severity of pain: At its worst the pain was moderate today, in the emergency department the pain has improved markedly. Had a cholecystectomy 03/05/2021 here.. Patient reports having cholecystectomy done here 03/05/[address] Mak. She states today she started having upper abdominal pain radiating to her back and lower chest area along with nausea and vomiting x2 episodes. Currently denies any fever, nausea, vomiting, chest pain, shortness of breath, diarrhea, dizziness, numbness/tingling, weakness, dysuria. Still has some intermittent discomfort in the epigastric area.. Historical: - Allergies: 18:40 Zoloft; vg1 - Home Meds: 18:40 levothyroxine oral [Active]; Multiple Vitamins oral [Active]; vg1 - PMHx: 18:40 Hypothyroidism; vg1 - PSHx: 18:40 thyroid sx; tubal ligation; Cholecystectomy; vg1 - Immunization history:: Client reports having NOT received the Covid vaccine. - Social history:: Smoking status: Patient/guardian denies using tobacco, the patient reports quitting approximately 6 years ago. ROS: 20:56 Constitutional: Negative for fever, chills, and weight loss, Eyes: Negative for injury, mh7 pain, redness, and discharge, ENT: Negative for injury, pain, and discharge, Neck: Negative for injury, pain, and swelling, Respiratory: Negative for shortness of breath, cough, wheezing, and pleuritic chest pain, Back: Negative for injury and pain, : Negative for injury, bleeding, discharge, and swelling, MS/Extremity: Negative for injury and deformity, Skin: Negative for injury, rash, and discoloration, Neuro: Negative for headache, weakness, numbness, tingling, and seizure, Psych: Negative for depression, anxiety, suicide ideation, homicidal ideation, and hallucinations, Allergy/Immunology: Negative for hives, rash, and allergies, Endocrine: Negative for neck swelling, polydipsia, polyuria, polyphagia, and marked weight changes, Hematologic/Lymphatic: Negative for swollen nodes, abnormal bleeding, and unusual bruising. Exam: 20:56 Constitutional: This is a well developed, well nourished patient who is awake, alert, mh7 and in no acute distress. Head/Face: Normocephalic, atraumatic. Eyes: Pupils equal round and reactive to light, extra-ocular motions intact. Lids and lashes normal. Conjunctiva and sclera are non-icteric and not injected. Cornea within normal limits. Periorbital areas with no swelling, redness, or edema. Neck: Trachea midline, no thyromegaly or masses palpated, and no cervical lymphadenopathy. Supple, full range of motion without nuchal rigidity, or vertebral point tenderness. No Meningismus. Chest/axilla: Normal chest wall appearance and motion. Nontender with no deformity. No lesions are appreciated. Cardiovascular: Regular rate and rhythm with a normal S1 and S2. No gallops, murmurs, or rubs. Normal PMI, no JVD. No pulse deficits. Respiratory: Lungs have equal breath sounds bilaterally, clear to auscultation and percussion. No rales, rhonchi or wheezes noted. No increased work of breathing, no retractions or nasal flaring. 20:56 Back: No spinal tenderness. No costovertebral tenderness. Full range of motion. Skin: Warm, dry with normal turgor. Normal color with no rashes, no lesions, and no evidence of cellulitis. MS/ Extremity: Pulses equal, no cyanosis. Neurovascular intact. Full, normal range of motion. Neuro: Awake and alert, GCS 15, oriented to person, place, time, and situation. Cranial nerves II-XII grossly intact. Motor strength 5/5 in all extremities. Sensory grossly intact. Cerebellar exam normal. Normal gait. Psych: Awake, alert, with orientation to person, place and time. Behavior, mood, and affect are within normal limits. 20:56 Abdomen/GI: Inspection: scar(s), are noted in the right upper quadrant, Small surgical wounds appear clean, dry, and intact without erythema, tenderness, swelling, or discharge., Bowel sounds: normal, in all quadrants, Palpation: mild abdominal tenderness, in the epigastric area, mass, is not appreciated, rebound tenderness, is not appreciated, voluntary guarding, is not appreciated, involuntary guarding, is not appreciated, no appreciated organomegaly, Rectal exam: the exam is deferred, because of patient request, Indicators: McBurney's point is not tender, Smith's sign is negative, Rovsing's sign is negative, Obturator sign is negative, Psoas sign is negative, Liver: no appreciated palpable abnormalities, Hernia: not appreciated. Vital Signs: 18:35 BP 121 / 75; Pulse 67; Resp 16; Temp 97.0; Pulse Ox 100% ; Weight 51.71 kg; Height 5 vg1 ft. 1 in. (154.94 cm); Pain 5/10; 20:16 BP 120 / 73; Pulse 65; Resp 20 S; Pulse Ox 100% on R/A; as6 21:34 BP 114 / 71; Pulse 55; Resp 18 S; Pulse Ox 100% on R/A; as6 22:36 BP 94 / 83; Pulse 71; Resp 16 S; Pulse Ox 100% on R/A; as6 18:35 Body Mass Index 21.54 (51.71 kg, 154.94 cm) vg1 MDM: 22:39 Differential diagnosis: bowel obstruction, diverticulitis, gastritis, gastroesophageal mh7 reflux disease, non-specific abd pain, pancreatitis, Peptic Ulcer Disease. Data reviewed: vital signs, nurses notes, old medical records, lab test result(s), cardiac enzymes, CBC, electrolytes, urinalysis, EKG, radiologic studies, CT scan, plain films. Data interpreted: Pulse oximetry: on room air is 100 %. Interpretation: normal. Counseling: I had a detailed discussion with the patient and/or guardian regarding: the historical points, exam findings, and any diagnostic results supporting the discharge/admit diagnosis, lab results, radiology results, the need for outpatient follow up, to return to the emergency department if symptoms worsen or persist or if there are any questions or concerns that arise at home. Response to treatment: the patient's symptoms have resolved after treatment, the patient's blood pressure is in an acceptable range, mental status has returned to baseline, the patient no longer shows bradycardia, the patient is not short of breath, the patient is not tachycardic, the patient's pain is gone, the patient's temperature has normalized, patient is well hydrated. Tolerating p.o. intake without difficulty.. 22:41 Patient medically screened. [facility] 03/18 18:57 Order name: Basic Metabolic Panel; Complete Time: 20:22 [facility] 03/18 18:57 Order name: CBC with Diff; Complete Time: 20:22 [facility] 03/18 18:57 Order name: LFT's; Complete Time: 20:22 [facility] 03/18 18:57 Order name: Magnesium; Complete Time: 20:22 [facility] 03/18 18:57 Order name: NT PRO-BNP; Complete Time: 20:22 [facility] 03/18 18:57 Order name: PT-INR; Complete Time: 20:22 [facility] 03/18 18:57 Order name: Troponin (emerg Dept Use Only); Complete Time: 20:22 [facility] 03/18 18:57 Order name: XRAY Chest (1 view); Complete Time: 21:29 [facility] 03/18 18:57 Order name: Lipase; Complete Time: 20:22 [facility] 03/18 20:35 Order name: CT Chest For PE Angio; Complete Time: 21:29 [facility] 03/18 20:35 Order name: CT Abd/Pelvis - IV Contrast Only; Complete Time: 21:29 [facility] 03/18 21:33 Order name: Urine Dipstick-Ancillary; Complete Time: 22:02 [facility] 03/18 18:57 Order name: EKG; Complete Time: 18:58 [facility] 03/18 18:57 Order name: Cardiac monitoring; Complete Time: 20:15 [facility] 03/18 18:57 Order name: EKG - Nurse/Tech; Complete Time: 20:15 [facility] 03/18 18:57 Order name: IV Saline Lock; Complete Time: 18:58 [facility] 03/18 18:57 Order name: Labs collected and sent; Complete Time: 18:58 1 03/18 18:57 Order name: O2 Per Protocol; Complete Time: 18:57 1 03/18 18:57 Order name: O2 Sat Monitoring; Complete Time: 18:57 1 03/18 20:24 Order name: Urine Dipstick-Ancillary (obtain specimen); Complete Time: 21:33 7 Administered Medications: 21:16 Drug: NS 0.9% 1000 ml Route: IV; Rate: 1000 ml; Site: right antecubital; as6 21:44 Follow up: Response: No adverse reaction; IV Status: Completed infusion; IV Intake: as6 1000ml 21:16 Drug: Zofran (Ondansetron) 4 mg Route: IVP; Site: right antecubital; as6 21:45 Follow up: Response: No adverse reaction as6 21:16 Not Given (Patient Refused): Pepcid (famotidine) 20 mg IVP once; dilute with 10 mL 0.9% as6 NaCl; give over 2 minutes Disposition Summary: 03/18/21 22:41 Discharge Ordered Location: Home [facility] Problem: new [facility] Symptoms: have improved [facility] Condition: Stable 7 Diagnosis - Upper abdominal pain, unspecified - Resolved mh7 - Nausea with vomiting, unspecified - Resolved mh7 Followup: 7 - With: Private Physician - When: 1 - 2 days - Reason: Worsening of condition, Recheck today's complaints, Continuance of care, Re-evaluation by your physician Followup: 7 - With: Jose Juan Mak MD - When: 1 - 2 days - Reason: Worsening of condition, Recheck today's complaints, Continuance of care, Re-evaluation by your physician Discharge Instructions: - Discharge Summary Sheet [facility] - Nausea and Vomiting, Adult 7 - Abdominal Pain, Adult, [id number] [facility] Forms: - Medication Reconciliation Form 7 - Thank You Letter [facility] - Antibiotic Education [facility] - Prescription Opioid Use [facility] Prescriptions: - ondansetron 4 mg Oral tablet,disintegrating - place 1 tablet by TRANSLINGUAL route every 8 hours As needed; 10 tablet; 7 Refills: 0, Product Selection Permitted - Pepcid 20 mg Oral Tablet - take 1 tablet by ORAL route every 12 hours for 5 days; 10 tablet; Refills: 0, 7 Product Selection Permitted - dicyclomine 20 mg Oral Tablet - take 1 tablet by ORAL route 4 times per day As needed; 20 tablet; Refills: 0, mh7 Product Selection Permitted Signatures: Dispatcher [employer] Eliza Kemp, RN RN vg1 Zac Ramirez MD MD mh7 Juan Chavira RN RN as6
--- NOTE | 2021-03-18 22:42 | ER ---
Nurse's Notes [facility] Name: Ronna Goins Age: 50 yrs Sex: Female : 1970 Arrival Date: 03/18/2021 Time: 18:17 Bed 6 Private MD: Diagnosis: Upper abdominal pain, unspecified-Resolved;Nausea with vomiting, unspecified-Resolved Presentation: 03/18 18:35 Chief complaint: Patient states: Pt has a cholecystectomy on . About an hour ago vg1 pt states was in the grocery store and had a sudden sharp pain in the epigastric area that spread across upper ABD and to back and up chest, states became diaphoretic and dizzy, had nausea and vomiting. States pain has subsided and 'is not as intense as it was in the grocery store'. Coronavirus screen: Vaccine status: Patient reports being unvaccinated. Client denies travel out of the [place] in the last 14 days. Ebola Screen: Patient negative for fever greater than or equal to 101.5 degrees Fahrenheit, and additional compatible Ebola Virus Disease symptoms. Initial Sepsis Screen: Does the patient meet any 2 criteria? No. Patient's initial sepsis screen is negative. Does the patient have a suspected source of infection? No. Patient's initial sepsis screen is negative. Risk Assessment: Do you want to hurt yourself or someone else? Patient reports no desire to harm self or others. Onset of symptoms was March 18, 2021. 18:35 Method Of Arrival: EMS: [place] [id number] 18:35 Acuity: CECILIO 3 vg1 Triage Assessment: 18:40 General: Appears in no apparent distress. uncomfortable, Behavior is calm, cooperative. vg1 Pain: Complains of pain in epigastric area, right upper quadrant and left upper quadrant Pain currently is 5 out of 10 on a pain scale. GI: Reports nausea, vomiting. Historical: - Allergies: 18:40 Zoloft; vg1 - Home Meds: 18:40 levothyroxine oral [Active]; Multiple Vitamins oral [Active]; vg1 - PMHx: 18:40 Hypothyroidism; vg1 - PSHx: 18:40 thyroid sx; tubal ligation; Cholecystectomy; vg1 - Immunization history:: Client reports having NOT received the Covid vaccine. - Social history:: Smoking status: Patient/guardian denies using tobacco, the patient reports quitting approximately 6 years ago. Screenin:18 Abuse screen: Denies threats or abuse. Nutritional screening: On. Nutritional as6 screening: No deficits noted. Tuberculosis screening: No symptoms or risk factors identified. Fall Risk None identified. Assessment: 20:16 General: Appears in no apparent distress. comfortable, Behavior is calm, cooperative. as6 Pain: Complains of pain in epigastric area, right upper quadrant and left upper quadrant Pain radiates to back Quality of pain is described as crampy, Also complains of nausea. Neuro: Level of Consciousness is awake, alert, obeys commands, Oriented to person, place, time, situation. Cardiovascular: Capillary refill < 3 seconds Patient's skin is warm and dry. Respiratory: Airway is patent Trachea midline Respiratory effort is even, unlabored, Respiratory pattern is regular, symmetrical. GI: Abdomen is flat, Bowel sounds present X 4 quads. Abd is soft X 4 quads Reports lower abdominal pain, nausea. Derm: Skin is intact, is healthy with good turgor. 21:35 Reassessment: Patient and/or family updated on plan of care and expected duration. Pain as6 level reassessed. Patient is alert, oriented x 3, equal unlabored respirations, skin warm/dry/pink. Vital Signs: 18:35 BP 121 / 75; Pulse 67; Resp 16; Temp 97.0; Pulse Ox 100% ; Weight 51.71 kg; Height 5 vg1 ft. 1 in. (154.94 cm); Pain 5/10; 20:16 BP 120 / 73; Pulse 65; Resp 20 S; Pulse Ox 100% on R/A; as6 21:34 BP 114 / 71; Pulse 55; Resp 18 S; Pulse Ox 100% on R/A; as6 22:36 BP 94 / 83; Pulse 71; Resp 16 S; Pulse Ox 100% on R/A; as6 18:35 Body Mass Index 21.54 (51.71 kg, 154.94 cm) vg1 ED Course: 18:17 Patient arrived in ED. ds1 18:40 Triage completed. vg1 18:40 Arm band placed on. vg1 18:43 Maintain EMS IV. Dressing intact. Site clean \T\ dry. Gauge \T\ site: 18 g R AC. vg 1 19:47 XRAY Chest (1 view) In Process Unspecified. EDMS 19:57 Juan Chavira, RN is Primary Nurse. as6 19:58 Zac Ramirez MD is Attending Physician. [facility] 20:18 Bed in low position. Call light in reach. Side rails up X2. Adult w/ patient. Cardiac as6 monitor on. Pulse ox on. NIBP on. 21:03 CT Chest For PE Angio In Process Unspecified. EDMS 21:06 CT Abd/Pelvis - IV Contrast Only In Process Unspecified. EDMS 22:41 Jose Juan Mak MD is Referral Physician. [facility] 22:45 No provider procedures requiring assistance completed. IV discontinued, intact, as6 bleeding controlled, No redness/swelling at site. Pressure dressing applied. Administered Medications: 21:16 Drug: NS 0.9% 1000 ml Route: IV; Rate: 1000 ml; Site: right antecubital; as6 21:44 Follow up: Response: No adverse reaction; IV Status: Completed infusion; IV Intake: as6 1000ml 21:16 Drug: Zofran (Ondansetron) 4 mg Route: IVP; Site: right antecubital; as6 21:45 Follow up: Response: No adverse reaction as6 21:16 Not Given (Patient Refused): Pepcid (famotidine) 20 mg IVP once; dilute with 10 mL 0.9% as6 NaCl; give over 2 minutes Intake: 21:44 IV: 1000ml; Total: 1000ml. as6 Outcome: 22:41 Discharge ordered by . [facility] 22:45 Discharged to home ambulatory. as6 22:45 Condition: stable 22:45 Discharge instructions given to patient, Instructed on discharge instructions, follow up and referral plans. medication usage, Demonstrated understanding of instructions, follow-up care, medications, Prescriptions given X 3. 22:48 Patient left the ED. as6 Signatures: Dispatcher [employer] [facility] Silvia Cruz ds1 Eliza Garcia, STARR RN vg1 Zac Ramirez MD MD [facility] Juan Chavira, STARR RN as6
[2021-03-18 23:00] VITALS: TEMP 97; O2SAT 100
[2021-03-18 23:05] VITALS: BP 94/83
== END 2021-03-18 22:48 | disposition home or self-care (01) ==
LOC: ER 18:15
DX: R10.10 Upper abdominal pain, unspecified (principal); R11.2 Nausea with vomiting, unspecified; E03.9 Hypothyroidism, unspecified
CPT/HCPCS: 93005; 85025; 80048; 36415; 83735; 85610; 80076; 81003; 84484; 83690; 83880; 71275; 74177; 71045; 96374; 99284; Q9967; J7030; J2405

== ENCOUNTER 2021-04-10 14:48 | Emergency (ER) | payer OTHER ==
--- OUTSIDE RECORDS SUMMARY | 2021-04-10 14:51 | XMS REPORT | Continuity of Care Document ---
:1970 Author Organization [facility] t Address [address] [place] [address] Care Team Providers Name Role Phone Scott Tian Primary Care Physician Gennaro JONES Attending Clinician GENNARO Attending Clinician Unavailable Jericho_Sim Attending Clinician Unavailable Jericho_Sim Admitting Clinician Unavailable Payers Payer Name Policy Type Policy Number Effective Date Expiration Date S ource DISABILITY [id number] 2016 DETERMINATION 00:00:00 SERVICES (DARS) Problems Condition [...] ual ual 00:00: [place] syndrome) syndrome) 00 [facility] anthony Branch Congenital Congenital Disease Active U [...] nivers hematuria hematuria 4-21 ity of 00:00: [place] [facility] Pain Pain Disease Active Univers pelvic pelvic 4-21 ity of 00:00: [place] [facility] Unusually Unusually Disease Active Uni vers frequent frequent 4-21 ity of menses menses 00:00: [place] [facility] Menorrhagi Menorrhagi Disease Active U nivers a with a with 4-21 ity of regular regular 00:00: [place] cycle cycle 00 Medical Branch Family Family Disease Active Univers history of history of 4-21 it y of breast breast 00:00: [place] cancer in cancer in 00 [facility] first first Branch degree degree relative relative [...] thyroid 9-09 ity of nodule nodule 00:00: [place] [facility] Goiter Goiter Disease Active Univers 8-26 ity of 00:00: [place] 00 Medical Branch Genital Genital Disease Active Univers herpes herpes ity of [facility] [place] Branch Allergies, Adverse Reactions, Alerts Allergy Allergy [...] ismael Reaction Available [facility] Vicodin Adverse Active paranoia [facility] Reaction [facility] Social History Social Habit Start Date Stop Date Quantity Comments Source History of Cigarette Smoker Universi ty of tobacco use [facility] [place] [facility] Exposure to Not sure University of SARS-CoV-2 [facility] [place] (event) [place] Alcohol intake 2021-02-09 2021-02-09 0 /d University 00:00:00 00:00:00 [facility] [place] [facility] Sex Ass[birth year] At [birth year] Universit y of 00:00:00 00:00:00 [facility] [place] [facility] Smoking Status Start Date Stop Date Source Former smoker 2020-12-12 00:00:00 2020-12-12 00:00:00 Universi of [facility] [place] [facility] Medications Ordered Filled Start Stop Current Ordering Indication Dosage Frequency Signature Comments Components Source Medication Medication Date Date Medication? Clinician (SIG) Name Name levothyroxi 2020-04 Yes [id number] TAKE 1 Univers ne 75 mcg 2-03 TABLET BY ity o f tablet 00:00: MOUTH [place] EVERY Medical MORNING Branch levothyroxi 2020-04- No [id number] TAKE 1 Univers ne 75 mcg 1 12-03 TABLET BY ity of tablet 00:00: 00:00 MOUTH [place] 00 : EVERY Medical MORNING Branch cholecalcif 2020-04 Yes Take by Un quinn jerrica, 0-29 mouth. ity of vitamin D3, 10:01: [place] (VITAMIN Medical D3) 4,000 Branch unit Cap cholecalcif 2020-04 Yes Take by Un quinn jerrica, 0-29 mouth. ity of vitamin D3, 10:01: [place] (VITAMIN 00 Medical D3) 4,000 Branch unit Cap cholecalcif 2020-04 Yes Take by Un quinn jerrica, 0-29 mouth. ity of vitamin D3, 10:01: [place] (VITAMIN 00 Medical D3) 4,000 Branch unit Cap LORazepam Yes Univers 0.5 mg 7-09 ity of tablet 00:00: Medical [place] LORazepam Yes Univers 0.5 mg 7-09 ity of tablet 00:00: [facility] LORazepam Yes Univers 0.5 mg 7-09 ity of tablet 00:00: [facility] esomeprazol Yes [id number] 40mg Take 1 Univers e (NEXIUM) 7-06 capsule by ity of 40 mg 00:00: mouth [place] capsule 00 daily with Medica l breakfast. Branch esomeprazol Yes [id number] 40mg Take 1 Univers e (NEXIUM) 7-06 capsule by ity of 40 mg 00:00: mouth [place] capsule 00 daily with Medica l breakfast. Branch esomeprazol Yes [id number] 40mg Take 1 Univers e (NEXIUM) 7-06 [...] UPSET STOMACH OR HEARTBURN levothyroxi 2020- No [id number] TAKE 1 Univers ne 75 mcg 6-03 -06 TABLET BY ity of tablet 00:00: 00:00 MOUTH [place] 00 :00 EVERY Medical MORNING Branch levothyroxi 2020- No [id number] TAKE 1 Univers ne 75 mcg 6-03 11-06 TABLET BY ity of tablet 00:00: 00:00 MOUTH [place] 00 :00 EVERY Medical MORNING Branch Ciprofloxac Ciprofloxac 2020- No Nori [address] [facility] in HCl in HCl 12-14 [facility] 00[facility]00 l Out[facility] ent Clinics valACYclovi Yes [id number] 1g Take 1 Univers r (VALTREX) 7-16 tablet by ity of 1 gram 00:00: mouth [place] tablet 00 daily. Medical Branch valACYclovi Yes [id number] 1g Take 1 Univers r (VALTREX) 7-16 tablet by ity of 1 gram 00:00: mouth [place] tablet 00 daily. [facility] Branch valACYclovi Yes [id number] 1g Take 1 Univers r (VALTREX) 7-16 [...] Source Systolic blood 2021-02-09 14:41:00 127 mm[Hg] [facility] Diastolic blood 2021-02-09 14:41:00 71 mm[Hg] [facility] Body height 2021-02-09 14:41:00 154.9 cm [facility] Body weight 2021-02-09 14:41:00 54.885 kg [facility] BMI 2021-02-09 14:41:00 22.86 kg/m2 [facility] Oxygen saturation 2021-02-09 14:41:00 96 /min [facility] in Arterial blood [facility] Br anch by Pulse oximetry Procedures This patient has no known procedures. Encounters Start End Encounter Admission Attending Care Care Encounter Source Date/Time Date/Time Type Type Clinicians Facility Department ID 2021-03-16 2021-03-16 SARA Eckert [id number] Univers 00:00:00 00:00:00 Sarah LOCKHART [id number] jarrod Dash [id number] [place] [id number] Pa dical NAL 220 Branch BUILDING 2021-02-09 2021-02-09 Office [facility] [id number] Univers 09:32:33 10:22:21 Visit [facility] [id number] it y of [place] [id number] Jacques as DOMINGO?BLEA [phone] Pa dical [address] MEDICAL OFFICE BUILDING 2021-02-09 2021-02-09 Outpatient R [facility] [id number] Univers 09:30:00 10:22:21 [facility] 2020-09-18 2020-09-18 Outpatient Koudela_A [facility] MMG [id number] [place] 11:16:00 11:16:00 [id number] 2019-12-27 2019-12-27 [facility] [id number]00 [facility] Outpati ent Clinics 2019-12-15 2019-12-15 [facility] [id number] [facility] 15:20:00 15:20:00 [facility] Medicine Medicine Outpati ent Clinics 2019-02-18 2019-02-18 [facility] [id number] [facility] 16:00:00 16:00:00 [facility] Medicine l Medicine Outpati ent Clinics 2018-08-13 2018-08-13 [facility] [id number] [facility] 08:45:00 08:45:00 [facility] Medicine l Medicine Outpati ent Clinics 2017-12-08 2017-12-08 [facility] [id number] [facility] 16:21:00 16:21:00 [facility] Medicine l Medicine Outpati ent Clinics 2017-12-05 2017-12-05 [facility] [id number] [facility] [address] 09:00:00 09:00:00 [facility] Medicine Medicine Outpati ent Clinics 2017-11-21 2017-11-21 [facility] [id number] [facility] 08[facility]28:00 08:28:00 t [facility] Medicine Outpati ent Clinics 2017-11-18 2017-11-18 [facility] [id number] [facility] 22:37:00 22:37:00 t [facility] Medicine Outpati ent Clinics 2017-11-18 2017-11-18 [facility] [id number] [facility] [address] 13:00:00 13:00:00 t [facility] Medicine Outpati ent Clinics 2017-09-09 2017-09-09 [facility] [id number] [facility] [address] 13:15:00 13:15:00 t [facility] Medicine Outpati ent Clinics 2017-09-04 2017-09-04 [facility] [id number] [facility] 09:30:00 09:30:00 [facility] Medicine Outpati ent Clinics Results This patient has no known results.
--- NOTE | 2021-04-10 16:18 | ER ---
Nurse's Notes [facility] Name: Ronna Goins Age: 51 yrs Sex: Female : 1970 Arrival Date: 04/10/2021 Time: 15:05 Bed Waiting Private MD: Diagnosis: Presentation: 04/10 16:15 Chief complaint: Patient states: Abd pain for 3 days with N/V. Coronavirus screen: ll1 Client denies travel out of the [place] in the last 14 days. At this time, the client does not indicate any symptoms associated with coronavirus-19. Ebola Screen: Patient denies travel to an Ebola-affected area in the 21 days before illness onset. 16:15 Method Of Arrival: Ambulatory 1 ED Course: 15:05 Patient arrived in ED. mr Administered Medications: No medications were administered Outcome: 16:17 Patient left the ED. [facility] Signatures: Rosalinda Dotson Lynsay RN RN [facility]
== END 2021-04-10 16:17 | disposition left against medical advice (07) ==
LOC: ER 14:48
DX: Z53.21 Procedure and treatment not carried out due to patient leaving prior to being seen by health care provider (principal)
CPT/HCPCS: 99281